=== PATIENT | male | born 1990 | race Two or more races ===

== ENCOUNTER 2020-12-24 15:15 | Emergency (ER) | payer SELFPAY | END 2020-12-24 16:43 | LOC: MW.ED 15:15 | DX: Z53.21 Procedure and treatment not carried out due to patient leaving prior to being seen by health care provider (principal) ==

== ENCOUNTER 2022-05-17 09:49 | Emergency (ER) | payer BC ==
[2022-05-17] MEDS ORDERED: Sodium Chloride 0.9% 10 ML Syringe FLUSH PRN (10:27)
[2022-05-17] MEDS ORDERED: Sodium Chloride 0.9% 2.5 ML Syringe FLUSH PRN (10:27)
[2022-05-17 10:52] LABS: CARBON DIOXIDE,CO2 27.8 mmol/L (21.0-32.0); POTASSIUM,K 3.8 mmol/L (3.5-5.1)
[2022-05-17 11:22] LABS: CORONAVIRUS COVID-19 NAA NEGATIVE (NEGATIVE); INFLUENZA A NAA NEGATIVE (NEGATIVE); INFLUENZA B NAA NEGATIVE (NEGATIVE)
== END 2022-05-17 12:50 | disposition home or self-care (01) ==
LOC: MW.ED 09:49
DX: R07.89 Other chest pain (principal); R74.01 Elevation of levels of liver transaminase levels; Z20.822 Contact with and (suspected) exposure to COVID-19
CPT/HCPCS: 0240U; 36415; 71045; 80053; 80305; 81001; 83735; 84484; 85025; 93005; 99285; J3490; 93010; 99284

== ENCOUNTER 2023-06-21 17:30 | Emergency (ER) | payer BC, OTHER ==
[2023-06-21] MEDS: Ibuprofen 800 MG Tab PO ONE (18:40)
== END 2023-06-21 18:51 ==
LOC: MW.ED 17:30
DX: S90.31XA Contusion of right foot, initial encounter (principal); Z75.8 Other problems related to medical facilities and other health care; W22.8XXA Striking against or struck by other objects, initial encounter; Y93.89 Activity, other specified
CPT/HCPCS: 73610; 73630; 99283; A9270; 99282

== ENCOUNTER 2023-09-03 14:29 | Emergency (ER) | payer MEDICAID ==
[2023-09-03] MEDS: Ibuprofen 600 MG Tab PO ONE (15:46)
[2023-09-03] MEDS: Acetaminophen 500 MG Tab PO ONE (17:19)
[2023-09-03] MEDS: Diphtheria,Pertussis(Acell),Tetanus Vaccine 0.5 ML Syringe IM ONE (17:19)
== END 2023-09-03 17:34 | disposition home or self-care (01) ==
LOC: MW.ED 14:29
DX: S50.11XA Contusion of right forearm, initial encounter (principal); S60.221A Contusion of right hand, initial encounter; Z23 Encounter for immunization; W19.XXXA Unspecified fall, initial encounter
CPT/HCPCS: 73090; 73130; 90471; 90715; 99283; A9270